=== PATIENT | female | born 1950 | race Native Hawaiian/Other Pacific Islander ===

== ENCOUNTER 2016-12-10 06:38 | Day surgery (SDC) | payer MEDICARE ==
[2016-12-10 06:59] VITALS: BMI 24.3
[2016-12-10 07:24] VITALS: O2SAT 100
[2016-12-10] MEDS: Lactated Ringer's 500 ML IV ONE (08:50)
[2016-12-10] MEDS ORDERED: Propofol 10 mg/ml Inj (20 ML) ONE (08:53)
[2016-12-10] MEDS ORDERED: Lactated Ringer's 500 ML IV SCH (09:00)
[2016-12-10 09:30] VITALS: TEMP 98
[2016-12-10 10:18] VITALS: BP 132/72; PULSE 59; RESP 13
== END 2016-12-10 10:16 | disposition home or self-care (01) ==
LOC: C.ENDO 06:38
PROVIDERS: ATTEND Internal Medicine Gastroenterology
DX: K57.90 Diverticulosis of intestine, part unspecified, without perforation or abscess without bleeding (principal); K64.8 Other hemorrhoids